=== PATIENT | male | born 1950 | race Caucasian/White ===

== ENCOUNTER → 2022-03-14 08:50 | Outpatient (BNVA) | payer OTHER, SELFPAY | PROVIDERS: Visit Provider Surgery | DX: Z12.11 Encounter for screening for malignant neoplasm of colon (principal) | CPT/HCPCS: 99203 ==

== ENCOUNTER 2022-05-04 05:36 | Day surgery (SDC) | payer OTHER, SELFPAY ==
[2022-05-02 12:27] VITALS: BMI 27.9
[2022-05-04 06:11] VITALS: BP 138/93; PULSE 67; RESP 18; TEMP 36.2; O2SAT 95
[2022-05-04] MEDS: sodium chloride 0.9% 1,000 ML 30 ML IV (06:21)
--- NOTE | 2022-05-04 06:29 | ANES.PREANE2 ---
Pre-Anesthetic Assessment Height/Weight: Height 1.83 m Weight 93.44 kg Temp Pulse Resp BP Pulse Ox O2 Del Method 97.1 F L 67 18 138/93 95 05/04/22 06:11 05/04/22 06:11 05/04/22 06:11 05/04/22 06:11 05/04/22 06:11 05/04/22 06:11 Preop Diagnosis: screening Operation Date: 05/04/22 07:00 Proposed Procedures p Colonoscopy 75348,Z12.11(Not Applicable) - Sanford Tomas DO Familial anesthetic complications: None Was Beta Conner taken within 24 hours: N/A Was Clonidine taken within 24 hours: N/A Last intake: Intake Last Liquid Date 05/03/22 Last Liquid Time 20:00 Last Solid Date 05/03/22 Last Solid Time 08:00 Social No alcohol and No tobacco Exam alert, oriented x 3, clear to auscultation bilaterally and regular rate & rhythm Airway Submandibular: within normal limits Cervical ROM: within normal limits Mallampati: Class II History/ROS No significant history except as noted Pulmonary Pt states ground glass opacities found on CT early march- not sympatomatic CV/HEM None reported None reported Hepatic None reported GI None reported Metabolic None reported Musc/skel None reported Neuropsych None reported Anesthetic Plan ASA status: 2 Anesthesia: Anesthesia Evaluation, General and MAC Risk of > 500 ml blood loss (7ml/kg in children): No Medications/Allergies Home Medications Medication Instructions Recorded Confirmed Last Taken Type ascorbic acid (vitamin C) 500 mg 500 mg PO .1 daily 03/14/22 05/04/22 04/30/22 History capsule cetirizine 10 mg tablet (Allergy 10 mg PO DAILY PRN Allergy Symptoms 03/14/22 05/04/22 04/30/22 History Relief (cetirizine)) green tea leaf extract (Green Tea) 1 cap PO .1 day 03/14/22 05/04/22 04/30/22 History multivitamin 1 tab PO ONCE 03/14/22 05/04/22 04/30/22 History niacin 500 mg tablet 500 mg PO BID 03/14/22 05/04/22 04/30/22 History omega 4-fbl-evs-fish oil 100 1 cap PO DAILY 03/14/22 05/04/22 04/30/22 History mg-160 mg-1,000 mg capsule (Fish Oil) potassium chloride 20 mEq oral 20 meq PO DAILY 03/14/22 05/04/22 04/30/22 History packet saw zohreho 160 mg capsule 160 mg PO ONCE 03/14/22 05/04/22 04/30/22 History Allergies Allergy/AdvReac Type Severity Reaction Status Date / Time Zzkysbv-NLU-CtT Reductase Allergy ALGY-Hives Verified 05/04/22 06:18 Inhibitor Current Medications Generic Name Dose Route Start Last Admin Trade Name Freq PRN Reason Stop Dose Admin Sodium Chloride 1,000 mls @ 30 mls/hr 05/04/22 06:00 05/04/22 06:21 Sodium Chloride 0.9% IV 05/05/22 05:59 30 mls/hr .Q24H CHRISTINE Administration PFSH Anesthesia Medical History Hx of colonic polyp Surgical History Hx of colonoscopy x2 hx of transverse polyp and rectal polyp Hx of exploratory thoracotomy Family History Mother Thyroid disease Father Hypertension Alzheimer disease Social History Smoking and tobacco status: never smoked Data Anesthesia Cardiac Studies: No Data to Display
--- NOTE | 2022-05-04 06:49 | PM.HP ---
Providers/Chief Complaint Primary Care Provider: Nataliya Saenz MD Chief Complaint: History of colon polyps History of Present Illness Elpidio Tuttle is a 72 year old male who comes in for a screening colonoscopy. He has a history of colon polyps Review of Systems General: Reports: 10 or more systems reviewed and unremarkable except in HPI and below Medications/Allergies Home Medications Medication Instructions Recorded Confirmed Last Taken Type ascorbic acid (vitamin C) 500 mg 500 mg PO .1 daily 03/14/22 05/04/22 04/30/22 History capsule cetirizine 10 mg tablet (Allergy 10 mg PO DAILY PRN Allergy Symptoms 03/14/22 05/04/22 04/30/22 History Relief (cetirizine)) green tea leaf extract (Green Tea) 1 cap PO .1 day 03/14/22 05/04/22 04/30/22 History multivitamin 1 tab PO ONCE 03/14/22 05/04/22 04/30/22 History niacin 500 mg tablet 500 mg PO BID 03/14/22 05/04/22 04/30/22 History omega 4-asx-nbz-fish oil 100 1 cap PO DAILY 03/14/22 05/04/22 04/30/22 History mg-160 mg-1,000 mg capsule (Fish Oil) potassium chloride 20 mEq oral 20 meq PO DAILY 03/14/22 05/04/22 04/30/22 History packet saw palmetto 160 mg capsule 160 mg PO ONCE 03/14/22 05/04/22 04/30/22 History Allergies Allergy/AdvReac Type Severity Reaction Status Date / Time Xnlqhmh-ZRT-UwW Reductase Allergy ALGY-Hives Verified 05/04/22 06:18 Inhibitor PFSH Acute PFSH: Medical History Hx of colonic polyp Surgical History Hx of colonoscopy x2 hx of transverse polyp and rectal polyp Hx of exploratory thoracotomy Family History Mother Thyroid disease Father Hypertension Alzheimer disease Social History Smoking and tobacco status: never smoked Vitals/I&O/Wt Last Vital Signs Temp 97.1 F L 05/04/22 06:11 Pulse 67 05/04/22 06:11 Resp 18 05/04/22 06:11 BP 138/93 05/04/22 06:11 Pulse Ox 95 05/04/22 06:11 O2 Del Method 05/04/22 06:11 Weight last 48 hrs Weight 206 lb Physical Exam Narrative: General : Patient is well developed , no acute distress, oriented x3 Head : Normal cephalic, a-traumatic. Ears : Pinnae and external canal are normal. Hearing is normal. Eyes : PERRLA, Sclera and injection are normal. No conjunctival discharge. Nose : Mucous membranes are without erythema. Throat : buccal mucosa is normal, gums are without significant recession or hypertrophy. Lungs : Equal chest rise bilaterally, no use of accessory muscles, trachea is midline. Cor : Rate and rhythm are normal. Abdomen : Soft, ND, NT, no g/r/m Extremities : No edema, no cyanosis or clubbing, dorsalis pedis pulses are present bilaterally, non-tender to palpation of calves. Upper extremities are normal bilaterally. Back : non-tender to palpation, no CVA tenderness. Neuro : CN II - XII intact, Upper and lower extremities have equal and full strength A&P Assessment and plan (1) Encounter for screening colonoscopy: Status: Acute Plan colonoscopy The risks and benefits of the procedure, including bleeding, infection, intestinal perforation requiring surgery, missed lesion, or explained to the patient. He is understanding of the risks and wishes to proceed. Attestations Medical Necessity Statement*: Patient will be discharged home patient will be discharged home after the procedure Coding Level of Care Code Acute Back Pad Inspector for Chg Fwd Diagnoses Encounter for screening colonoscopy Z12.11
[2022-05-04 07:25] VITALS: BP 107/72; PULSE 60; RESP 18; TEMP 36.3; O2SAT 96
[2022-05-04 07:34] VITALS: BP 133/68; PULSE 59; RESP 18; TEMP 36.4; O2SAT 97
--- NOTE | 2022-05-04 13:31 | ANE.PACU2 ---
Inpatient post-anesthesia follow up: Airway intact: Yes Vital signs: Temperature 97.6 F Pulse Rate 59 Respiratory Rate 18 Blood Pressure 133/68 Pulse Oximetry 97 Oxygen Delivery Me thod Room Air Oxygen Flow Rate Fraction of Inspir ed Oxygen Hydration adequate: Yes Nausea and vomiting: No Pain level: 1 Mental status: Baseline
== END 2022-05-04 07:51 | disposition home or self-care (01) ==
PROVIDERS: PCP Family Medicine; Visit Provider Surgery
PROC: 0DJD8ZZ Inspection of Lower Intestinal Tract, Via Natural or Artificial Opening Endoscopic (ICD-10-PCS; CPT 45378; principal; 2022-05-04 07:00)
DX: Z12.11 Encounter for screening for malignant neoplasm of colon (principal); D12.2 Benign neoplasm of ascending colon; Z86.010 Personal history of colon polyps
CPT/HCPCS: 45385; 88305; J2704; J7030

== ENCOUNTER → 2022-05-18 09:54 | Outpatient (BNVA) | payer OTHER, SELFPAY | PROVIDERS: PCP Family Medicine; Visit Provider Surgery | DX: D36.9 Benign neoplasm, unspecified site (principal) | CPT/HCPCS: 99212 ==

== ENCOUNTER 2024-11-24 18:15 | Inpatient (IN) | payer OTHER, MEDICARE, SELFPAY ==
[2024-11-24 18:40] VITALS: BP 126/85; PULSE 102; RESP 18; TEMP 36.4; O2SAT 93; BMI 27.8
[2024-11-24 19:52] LABS: Basophils % 0.1 %; Hematocrit 46.5 % (37-53); Lymphocytes # 0.4 10^3/uL (0.8-4.8); Lymphocytes % 5.3 %; Mean Corpuscular Hemoglobin 28.4 pg (27-33); Mean Corpuscular Volume 88.6 fl (82-101); Mean Platelet Volume 10.8 fL (7.4-10.4); Monocytes # 0.4 10^3/uL (0.2-0.9); Monocytes % 4.5 %; Neutrophils # 7.35 10^3/uL (1.8-7.7); Neutrophils % 89.7 %; Nucleated Red Blood Cells % 0 %; Platelet Count 143 10^3/cmm (157-399); Red Blood Count 5.25 10^6/uL (3.85-5.65); Red Cell Distribution Width 14.7 % (12.1-15.1); White Blood Count 8.19 10^3/uL (3.29-11.43)
[2024-11-24 20:11] LABS: Alanine Aminotransferase 27 U/L (0-41); Albumin Level 3.7 g/dL (3.5-5.2); Alkaline Phosphatase 130 U/L (40-130); Anion Gap 15.3 (5-19); Aspartate Amino Transferase 50 U/L (0-40); Blood Urea Nitrogen 19 mg/dL (8-23); Calcium 8.2 mg/dL (8.5-10.5); Carbon Dioxide 18 mmol/L (22-29); Chloride 109 mmol/L (98-107); Creatinine Clr Calc Pharmacy 79.1014; Globulin 3.1 g/dL (1.3-4.6); Glucose 185 mg/dL (65-115); Lipase 33 U/L (13-60); Osmolality Calculated 293 mOsm/kg (285-295); Potassium 4.3 mmol/L (3.5-5.1); Sodium 138 mmol/L (136-145); Total Bilirubin 0.4 mg/dL (0.15-1.2); Total Protein 6.8 g/dL (6.6-8.7)
--- NOTE | 2024-11-24 20:48 | CTR_ITS ---
PROCEDURE INFORMATION: Exam: CT Abdomen And Pelvis With Contrast Exam date and time: 11/24/2024 9:03 PM Age: 74 years old Clinical indication: Abdominal pain; Epigastric; Additional info: Abd pain TECHNIQUE: Imaging protocol: Computed tomography of the abdomen and pelvis with contrast. Radiation optimization: All CT scans at this facility use at least one of these dose optimization techniques: automated exposure control; mA and/or kV adjustment per patient size (includes targeted exams where dose is matched to clinical indication); or iterative reconstruction. Contrast material: OMNI 350; Contrast volume: 100 ml; Contrast route: INTRAVENOUS (IV); COMPARISON: CR XR pelvis 1-2V* [id number] 01/17/2019 2:14 PM RADIATION DOSE METRICS: Total DLP (mGy-cm): 832.93 FINDINGS: Liver: Normal. No mass. Gallbladder and biliary ducts: Normal. No calcified stones. No ductal dilation. Pancreas: Normal. No ductal dilation. Spleen: Normal. No splenomegaly. Adrenal glands: Normal. No mass. Kidneys and ureters: Normal. No hydronephrosis. Stomach and bowel: Small bowel obstruction. Retained secretions in the distal esophagus. The stomach is distended with air and fluid. Multiple dilated air and fluid-filled loops of small bowel throughout the abdomen with 10 positioned point in the distal ileum. No tethering, mass or stricture identified at the transition point (series 3, image 55). Appendix: No evidence of appendicitis. Intraperitoneal space: Unremarkable. No free air. No significant fluid collection. Vasculature: Unremarkable. No abdominal aortic aneurysm. Lymph nodes: Unremarkable. No enlarged lymph nodes. Urinary bladder: Unremarkable as visualized. Reproductive: Unremarkable as visualized. Bones/joints: Severe degenerative disc disease at L2-L3 and L5-S1. Soft tissues: Unremarkable. CT/CT abdomen pelvis w con* [id number] IMPRESSION: Small bowel obstruction. Retained secretions in the distal esophagus. The stomach is distended with air and fluid. Multiple dilated air and fluid-filled loops of small bowel throughout the abdomen with 10 positioned point in the distal ileum. No tethering, mass or stricture identified at the transition point (series 3, image 55).
--- NOTE | 2024-11-24 20:51 | ECG_ITS ---
[facility] 2024[facility]24 Pat Name: Elpidio Tuttle Department: Room: Gender: Male Grades 1 Thru 6 Home Teacher: : 1950 Requested By: Tyson Meza Order Number: [id number] Reading MD: TRAVIS VAUGHAN Measurements Intervals [place] Rate: 90 P: 40 FL: 175 QRS: 24 QRSD: 87 T: 40 QT: 342 QTc: 419 Interpretive Statements SINUS RHYTHM POSSIBLE LEFT ATRIAL ENLARGEMENT [-0.1mV P-WAVE IN V1/V2] No previous ECG available for comparison Electronically Signed On 11-25-2024 23:34:18 RECREATIONAL THERAPY AIDE by TRAVIS VAUGHAN [email or web address]
--- NOTE | 2024-11-24 20:51 | W.ED.ABDPA2 ---
HPI - Abdominal Pain General: Chief Complaint: Abdominal Pain Stated Complaint: ABD Pain\Diah\Sameer Time Seen by Provider: 11/24/24 20:14 Source: patient Mode of arrival: ambulatory Limitations: no limitations History of Present Illness: 74-year-old male who states that he has been having epigastric abdominal pain since eating last night. He states he ate a burger and since then he has been having pain he is also had 2 episodes of vomiting and belching. States pain sharp in nature rates it a 7 out of 10 denies any worse improving factors Associated Symptoms: Reports nausea and vomiting; Denies chills and fever(s) Related Data Home Medications ?Medication ?Instructions ?Recorded ?Confirmed ascorbic acid (vitamin C) 500 mg 500 mg PO .1 daily 03/14/22 05/18/22 capsule cetirizine 10 mg tablet (Allergy 10 mg PO DAILY PRN Allergy Symptoms 03/14/22 05/18/22 Relief (cetirizine)) green tea leaf extract (Green Tea 1 cap PO .1 day 03/14/22 05/18/22 capsule) multivitamin 1 tab PO ONCE 03/14/22 05/18/22 niacin 500 mg tablet 500 mg PO BID 03/14/22 05/18/22 omega 9-qws-blj-fish oil 100 1 cap PO DAILY 03/14/22 05/18/22 mg-160 mg-1,000 mg capsule (Fish Oil) Held on 05/04/22. Instructions: Resume on 05/07/22. potassium chloride 20 mEq oral 20 meq PO DAILY 03/14/22 05/18/22 packet saw palmetto 160 mg capsule 160 mg PO ONCE 03/14/22 05/18/22 Allergies Allergy/AdvReac Type Severity Reaction Status Date / Time Wphxjcs-IPF-AjJ Reductase Allergy ALGY-Hives Verified 11/24/24 18:47 Inhibitor Review of Systems Const: Denies: fever(s), chills, body aches or change in appetite ENMT: Denies: throat pain or dental pain Card: Denies: chest pain Resp: Denies: dyspnea GI: Reports: abdominal pain, nausea and vomiting Musc: Denies: neck pain or back pain Skin/Breast: Denies: rash Neuro: Denies: headache(s) PFSH ED PFSH: Medical History Tubular adenoma Hx of colonic polyp Surgical History Hx of exploratory thoracotomy Hx of colonoscopy x2 hx of transverse polyp and rectal polyp Family History Mother Thyroid disease Father Hypertension Alzheimer disease Social History Smoking and tobacco/nicotine status: never used tobacco/nicotine Physical Exam Const: COMMON NORMALS: no acute distress, patient oriented x3 and healthy appearing HENMT: COMMON NORMALS: normocephalic and atraumatic HEAD & SCALP: normocephalic and atraumatic Eye: COMMON NORMALS: conjunctivae normal CONJUNCTIVA: Yes conjunctivae normal Neck/C-Spine: COMMON NORMALS: full ROM and supple Chest: COMMONS NORMALS: normal inspection of the chest Resp: COMMON NORMALS: normal respiratory effort, No retractions, No use of accessory muscles and clear to auscultation bilaterally AUSCULTATION: clear to auscultation bilaterally Cardio: COMMON NORMALS: regular rate, regular rhythm and No murmurs present (Cardio) RATE: regular rate RHYTHM: regular rhythm GI: COMMON NORMALS: Normal to inspection, nondistended, normoactive bowel sounds present, Soft to palpation and no masses PALPATION: Yes Soft to palpation OTHER: epigastric tenderness Extremity: COMMON NORMALS: normal to inspection and full ROM Neuro: COMMON NORMALS: patient oriented x3, moves all extremities and no focal motor deficits Psych: COMMON NORMALS: mental status grossly normal, Normal thought process present and cooperative THOUGHT PROCESS: Normal thought process present Skin: COMMON NORMALS: no rashes or lesions noted and no wounds GENERAL SKIN EXAM: no rashes or lesions noted Course Vital Signs: Vital signs: Vital Signs Temperature 97.5 F L 11/24/24 18:40 Pulse Rate 102 H 11/24/24 18:40 Respiratory Rate 18 11/24/24 18:40 Blood Pressure 126/85 11/24/24 18:40 Pulse Oximetry 93 11/24/24 18:40 Oxygen Delivery Me thod Room Air 11/24/24 18:40 MDM - Abdominal Pain Medical Decision Making Patient presents here with abdominal pain vomiting CT did show small bowel obstruction will place an NG tube did spoke to hospitalist will admit at this time. Medical Records I reviewed the patient's medical records. Lab Data I reviewed the patient's lab results. 11/24/24 19:44 11/24/24 19:44 Labs/Radiology: Radiology Impressions Abdomen/Pelvis CT 11/24/24 20:48 IMPRESSION: Small bowel obstruction. Retained secretions in the distal esophagus. The stomach is distended with air and fluid. Multiple dilated air and fluid-filled loops of small bowel throughout the abdomen with 10 positioned point in the distal ileum. No tethering, mass or stricture identified at the transition point (series 3, image 55). ADDENDUM: 11/24/242137 THIS REPORT CONTAINS FINDINGS THAT MAY BE CRITICAL TO PATIENT CARE. The findings were verbally communicated via telephone conference with SHAAN Best at 9:38 PM WAGE AND SALARY SPECIALIST on 11/24/2024. The findings were acknowledged and understood. Laboratory Results WBC 8.19 10^3/uL (3.29-11.43) 11/24/24 19:44 RBC 5.25 10^6/uL (3.85-5.65) 11/24/24 19:44 Hgb 14.90 g/dL (11.27-16.99) 11/24/24 19:44 Hct 46.5 % (37-53) 11/24/24 19:44 MCV 88.6 fl (82-101) 11/24/24 19:44 MCH 28.4 pg (27-33) 11/24/24 19:44 MCHC 32.0 g/dL (30-55) 11/24/24 19:44 RDW 14.7 % (12.1-15.1) 11/24/24 19:44 Plt Count 143 10^3/cmm (157-399) L 11/24/24 19:44 MPV 10.8 fL (7.4-10.4) H 11/24/24 19:44 Neut % (Auto) 89.7 % 11/24/24 19:44 Lymph % (Auto) 5.3 % 11/24/24 19:44 [place] % (Auto) 4.5 % 11/24/24 19:44 Eos % (Auto) 0.0 % 11/24/24 19:44 Baso % (Auto) 0.1 % 11/24/24 19:44 Neut # (Auto) 7.35 10^3/uL (1.8-7.7) 11/24/24 19:44 Lymph # (Auto) 0.4 10^3/uL (0.8-4.8) L 11/24/24 19:44 [place] # (Auto) 0.4 10^3/uL (0.2-0.9) 11/24/24 19:44 Eos # (Auto) 0.0 10^3/uL (0.0-0.8) 11/24/24 19:44 Baso # (Auto) 0.0 10^3/uL (0.0-0.1) 11/24/24 19:44 Nucleated RBC % (auto) 0 % 11/24/24 19:44 Nucleated RBCs # 0.0 /100WBC 11/24/24 19:44 Sodium 138 mmol/L (136-145) 11/24/24 19:44 Potassium 4.3 mmol/L (3.5-5.1) 11/24/24 19:44 Chloride 109 mmol/L (98-107) H 11/24/24 19:44 Carbon Dioxide 18 mmol/L (22-29) L 11/24/24 19:44 Anion Gap 15.3 (5-19) 11/24/24 19:44 BUN 19 mg/dL (8-23) 11/24/24 19:44 Creatinine 1.0 mg/dL (0.7-1.2) 11/24/24 19:44 GFR Calculation Not Reportable 11/24/24 19:44 Glucose 185 mg/dL (65-115) H 11/24/24 19:44 Calculated Osmolality 293 mOsm/kg (285-295) 11/24/24 19:44 Calcium 8.2 mg/dL (8.5-10.5) L 11/24/24 19:44 Total Bilirubin 0.4 mg/dL (0.15-1.2) 11/24/24 19:44 AST 50 U/L (0-40) H 11/24/24 19:44 ALT 27 U/L (0-41) 11/24/24 19:44 Alkaline Phosphatase 130 U/L (40-130) 11/24/24 19:44 Total Protein 6.8 g/dL (6.6-8.7) 11/24/24 19:44 Albumin 3.7 g/dL (3.5-5.2) 11/24/24 19:44 Globulin 3.1 g/dL (1.3-4.6) 11/24/24 19:44 Lipase 33 U/L (13-60) 11/24/24 19:44 All radiology interpretation(s) finalized by discharge Discharge Plan Discharge Patient Disposition: Admitted As Inpatient Clinical Impression: Small bowel obstruction Condition: Stable Prescriptions: No Action niacin 500 mg tablet 500 mg PO BID ascorbic acid (vitamin C) 500 mg capsule 500 mg PO .1 daily multivitamin Tablet 1 tab PO ONCE Green Tea Capsule 1 cap PO .1 day Fish Oil 100-160-1,000 mg capsule 1 cap PO DAILY potassium chloride 20 mEq packet 20 meq PO DAILY saw palmetto 160 mg capsule 160 mg PO ONCE Rx Instructions: give with meal/snack cetirizine [Allergy Relief (cetirizine)] 10 mg tablet 10 mg PO DAILY PRN (Reason: Allergy Symptoms) Referrals: Nataliya Saenz MD [Primary Care Provider] - Patient Instructions: Opioid Safety, Pain Management Print Language: Irish Coding Level of Care Code ED Drywall Boardhanger for Joe Mike
[2024-11-24] MEDS: ondansetron 2 mg/ML SDV 2 mL 4 MG IVP ×2 (20:58→22:27)
[2024-11-24] MEDS: HYDROMORPHONE HCL 0.5 MG/0.5 ML INJ IVP (20:59)
[2024-11-24] MEDS: iohexol 350 mg/mL 500 mL Btl (per mL) IV (21:06)
[2024-11-24 21:37] VITALS: BP 154/88; PULSE 83; O2SAT 95
--- NOTE | 2024-11-24 21:40 | PM.HP ---
Providers/Chief Complaint Primary Care Provider: Nataliya Saenz MD Chief Complaint: ABD Pain\Diah\Sameer History of Present Illness Elpidio Tuttle is a 74 year old male without significant past medical surgical history presented with chief complaint of recurrent nausea vomiting abdominal discomfort. Patient is drowsy, has an NG tube with 700 mL of dark-colored gastric content, patient is saturating 89 to 90% on room air, hemodynamically stable, verbally redirectable, is at the bedside who is providing most of the information, is stating that yesterday Elpidio had a buffalo burger with mashed potatoes and after that he started feeling very full, he has been vomiting since last 24 hours, they have not noticed any fever, his last bowel movement was today in the waiting room, workup in the ER revealed normal CBC and BMP, CT abdomen pelvis consistent with bowel obstruction, general surgery consulted, NG tube in place at the time of evaluation Patient is stating that he had colonoscopy few years ago, couple of polyps were removed he was never told about any cancerous lesion he does have a brother with GI cancer Patient does not have any history of coronary disease or RI. I have asked nursing staff to put him on 3 L nasal cannula because of hypoxia with the NG tube is stating that Elpidio has never been diagnosed with any sleep apnea, Review of Systems Eyes: Denies: change in vision ENMT: Denies: throat pain Card: Denies: chest pain Resp: Denies: dyspnea GI: Reports: abdominal pain and nausea : Denies: flank pain Medications/Allergies Home Medications ?Medication ?Instructions ?Recorded ?Confirmed ?Last Taken ?Type ascorbic acid (vitamin C) 500 mg 500 mg PO .1 daily 03/14/22 05/18/22 04/30/22 History capsule cetirizine 10 mg tablet (Allergy 10 mg PO DAILY PRN Allergy Symptoms 03/14/22 05/18/22 04/30/22 History Relief (cetirizine)) green tea leaf extract (Green Tea 1 cap PO .1 day 03/14/22 05/18/22 04/30/22 History capsule) multivitamin 1 tab PO ONCE 03/14/22 05/18/22 04/30/22 History niacin 500 mg tablet 500 mg PO BID 03/14/22 05/18/22 04/30/22 History omega 8-gkx-wwp-fish oil 100 1 cap PO DAILY 03/14/22 05/18/22 04/30/22 History mg-160 mg-1,000 mg capsule (Fish Oil) Held on 05/04/22. Instructions: Resume on 05/07/22. potassium chloride 20 mEq oral 20 meq PO DAILY 03/14/22 05/18/22 04/30/22 History packet saw palmetto 160 mg capsule 160 mg PO ONCE 03/14/22 05/18/22 04/30/22 History Allergies Allergy/AdvReac Type Severity Reaction Status Date / Time Vgiyyjz-CPE-QtK Reductase Allergy ALGY-Hives Verified 11/24/24 18:47 Inhibitor PFSH Acute PFSH: Medical History Tubular adenoma Hx of colonic polyp Surgical History Hx of exploratory thoracotomy Hx of colonoscopy x2 hx of transverse polyp and rectal polyp Family History Mother Thyroid disease Father Hypertension Alzheimer disease Social History Smoking and tobacco/nicotine status: never used tobacco/nicotine Vitals/I&O/Wt Last Vital Signs Temp 97.5 F L 11/24/24 18:40 Pulse 102 H 11/24/24 18:40 Resp 18 11/24/24 18:40 BP 126/85 11/24/24 18:40 Pulse Ox 93 11/24/24 18:40 O2 Del Method Room Air 11/24/24 18:40 Weight last 48 hrs Weight 92.986 kg Physical Exam Narrative: Patient is drowsy however redirectable No sign of stroke Hypoxic on room air Currently saturating well Abdomen benign Absent bowel sounds GCS 15 No active focal deficit Pupils symmetrical Patient is getting IV fluids Data 11/24/24 19:44 11/24/24 19:44 A&P Assessment and plan (1) Small bowel obstruction: (2) Tubular adenoma: Plan Small bowel obstruction 2021 ascending colon polypectomy was done which showed tubular adenoma no high-grade dysplasia noted Patient has a brother with GI cancer Patient is not endorsing any significant surgical history, thoraco abdominal area scar consistent with a cyst removal as per the family NG tube in place Hemodynamically stable Start D5 normal saline Opioids on as-needed basis Serial abdominal exams General Surgery consulted If patient symptoms do not resolve in the next 24 to 48 hours he will need PPN versus TPN for nutrition Acute hypoxia: Undiagnosed sleep apnea? Will start 3 L nasal cannula treatment in the ER Chest x-ray not showing any consolidation or aspiration signs Hold p.o. meds N.p.o. Full code DVT prophylaxis Lovenox GI prophylaxis: Protonix PDMP PDMP Reviewed: Not Reviewed Attestations Medical Necessity Statement*: More than 2 midnights anticipated Diagnoses Small bowel obstruction K56.609 Tubular adenoma D36.9
--- NOTE | 2024-11-24 22:10 | PM.CONSULT ---
Providers/Reason For Consult Consulting Physician/Specialty*: Dr. Bowers general surgery Reason for Consult*: SBO Attending Physician: Jose Miguel Love MD Primary Care Provider: Nataliya Saenz MD History of Present Illness History of Present Illness Elpidio Tuttle is a 74 year old male who presents with nausea and vomiting. Patient also reports diarrhea starting yesterday. Patient currently passing gas and had a couple small bowel movements earlier this morning. CT scan was done as part of his ER workup which revealed dilated loops of small bowel as well as a possible transition point in right lower quadrant. Patient had a remote surgery in which they had removed a cyst in the thoracoabdominal area. Patient can provide much detail. Family at bedside cannot provide additional details either. Abdomen is distended but benign. CT scan does not show any evidence of compromised small bowel. Medications/Allergies Home Medications ?Medication ?Instructions ?Recorded ?Confirmed ?Last Taken ?Type ascorbic acid (vitamin C) 500 mg 500 mg PO .1 daily 03/14/22 05/18/22 04/30/22 History capsule cetirizine 10 mg tablet (Allergy 10 mg PO DAILY PRN Allergy Symptoms 03/14/22 05/18/22 04/30/22 History Relief (cetirizine)) green tea leaf extract (Green Tea 1 cap PO .1 day 03/14/22 05/18/22 04/30/22 History capsule) multivitamin 1 tab PO ONCE 03/14/22 05/18/22 04/30/22 History niacin 500 mg tablet 500 mg PO BID 03/14/22 05/18/22 04/30/22 History omega 6-rll-wga-fish oil 100 1 cap PO DAILY 03/14/22 05/18/22 04/30/22 History mg-160 mg-1,000 mg capsule (Fish Oil) Held on 05/04/22. Instructions: Resume on 05/07/22. potassium chloride 20 mEq oral 20 meq PO DAILY 03/14/22 05/18/22 04/30/22 History packet saw palmetto 160 mg capsule 160 mg PO ONCE 03/14/22 05/18/22 04/30/22 History Allergies Allergy/AdvReac Type Severity Reaction Status Date / Time [id number] Reductase Allergy ALGY-Hives Verified 11/24/24 18:47 Inhibitor PFSH Acute PFSH: Medical History Tubular adenoma Hx of colonic polyp Surgical History Hx of exploratory thoracotomy Hx of colonoscopy x2 hx of transverse polyp and rectal polyp Family History Mother Thyroid disease Father Hypertension Alzheimer disease Social History Smoking and tobacco/nicotine status: never used tobacco/nicotine Vitals/I&O/Wt Last Vital Signs Temp 97.5 F L 11/24/24 18:40 Pulse 102 H 11/24/24 18:40 Resp 18 11/24/24 18:40 BP 126/85 11/24/24 18:40 Pulse Ox 93 11/24/24 18:40 O2 Del Method Room Air 11/24/24 18:40 Weight last 48 hrs Weight 205 lb Physical Exam Narrative: Chest: Unlabored breathing room air. No lymphadenopathy. Heart: Regular rate and rhythm. Abdomen: Soft, diffusely tender, distended. No masses or lymphadenopathy. Several surgical scars in the right thoracoabdominal area. Data 11/24/24 19:44 11/24/24 19:44 A&P Assessment and plan (1) Small bowel obstruction: 74-year-old male who presents with possible SBO. Patient unsure if he had abdominal surgery but he does have scars over the right thoracoabdominal area. Agree with NG tube placement to low continuous suction, nothing by mouth, IV fluid resuscitation. Electrolyte derangement correction. Will follow closely. PDMP PDMP Reviewed: Not Reviewed Coding Level of Care Code 41060 Diagnoses Small bowel obstruction K56.609 Time Spent (min) 30
--- NOTE | 2024-11-24 22:12 | XRR_ITS ---
PROCEDURE INFORMATION: Exam: XR Chest Exam date and time: 11/24/2024 10:36 PM Age: 74 years old Clinical indication: Device placement; Ng tube; Additional info: Post ng tube placement TECHNIQUE: Imaging protocol: Radiologic exam of the chest. Views: 1 view. COMPARISON: CR XR chest 1V [id number] 01/17/2019 2:09 PM FINDINGS: Tubes, catheters and devices: The NG tube tracks into the stomach. Lungs: Unremarkable. No consolidation. Pleural spaces: Unremarkable. No pleural effusion. No pneumothorax. Heart/Mediastinum: Unremarkable. No cardiomegaly. Bones/joints: Unremarkable. XR/XR chest 1V portable [id number] IMPRESSION: The NG tube tracks into the stomach.
[2024-11-24] MEDS: LORazepam 2 mg/mL INJ 1 mL 0.5 MG IVP (22:18)
[2024-11-24] MEDS: cetacaine Spray 5 gm Can 1 SPRAY TOPICAL (22:19)
[2024-11-24] MEDS: HYDROMORPHONE HCL 0.5 MG/0.5 ML INJ 1 MG IVP (22:27)
[2024-11-24] MEDS: dextrose 5%-sod chloride 0.9% 1,000 ML 75 ML IV (22:59)
[2024-11-24] MEDS: enoxaparin 40 mg/0.4 mL Syringe SUBCUT (23:03)
[2024-11-24 23:30] VITALS: BP 112/76; PULSE 90; O2SAT 92
[2024-11-25] VITALS (12 sets, daily range): BP systolic 113–143; BP diastolic 67–98; PULSE 82–118; RESP 17–19; TEMP 36.4–36.9; O2SAT 90–95; BMI 27.8
[2024-11-25 03:10] LABS: Basophils % 0.2 %; Eosinophils % 0.2 %; Hematocrit 48.2 % (37-53); Lymphocytes # 0.3 10^3/uL (0.8-4.8); Lymphocytes % 5.3 %; Mean Corpuscular HGB Conc 31.5 g/dL (30-55); Mean Corpuscular Hemoglobin 28.1 pg (27-33); Mean Corpuscular Volume 89.1 fl (82-101); Mean Platelet Volume 10.8 fL (7.4-10.4); Monocytes # 0.2 10^3/uL (0.2-0.9); Monocytes % 3.3 %; Neutrophils # 5.51 10^3/uL (1.8-7.7); Neutrophils % 90.8 %; Nucleated Red Blood Cells % 0 %; Platelet Count 115 10^3/cmm (157-399); Red Blood Count 5.41 10^6/uL (3.85-5.65); Red Cell Distribution Width 14.7 % (12.1-15.1); White Blood Count 6.06 10^3/uL (3.29-11.43)
[2024-11-25 03:30] LABS: Anion Gap 15.6 (5-19); Blood Urea Nitrogen 21 mg/dL (8-23); Calcium 7.9 mg/dL (8.5-10.5); Carbon Dioxide 18 mmol/L (22-29); Chloride 109 mmol/L (98-107); Creatinine Clr Calc Pharmacy 71.9103; Glucose 196 mg/dL (65-115); Magnesium 1.9 mg/dL (1.7-2.3); Osmolality Calculated 294 mOsm/kg (285-295); Potassium 4.6 mmol/L (3.5-5.1); Sodium 138 mmol/L (136-145)
--- NOTE | 2024-11-25 08:00 | XRR_ITS ---
PROCEDURE INFORMATION: Exam: XR Abdomen Exam date and time: 11/25/2024 8:40 AM Age: 74 years old Clinical indication: Condition or disease; Intestinal condition; Obstruction; Additional info: Sbo TECHNIQUE: Imaging protocol: Radiologic exam of the abdomen. Views: Frontal supine view of the abdomen. 1 View. COMPARISON: CT abdomen pelvis w con* [id number] 11/24/2024 9:03 PM FINDINGS: Tubes, catheters and devices: Gastric tube terminates in the stomach. Gastrointestinal tract: Gas within prominent loops of small bowel and in nondistended colon. A mild degree of obstruction may still persist. Organs: Contrast residue within the urinary system. Bones/joints: Unremarkable. XR/XR KUB portable [id number] IMPRESSION: Mild small bowel prominence.
[2024-11-25] MEDS: pantoprazole 40 mg SDV IVP ×2 (08:34→17:09)
[2024-11-25 08:36] LABS: Bilirubin Urine Negative (Negative); Blood Urine Negative (Negative); Glucose Urine UA Trace (Normal); Ketones Urine Trace (Negative); Leukocyte Esterase Urine Negative (Negative); Nitrate Urine Negative (Negative); Protein Urine 2+ (Negative); Urine Appearance Clear (CLEAR); Urine Color Yellow (Yellow)
[2024-11-25 09:02] LABS: Add Urine Microscopic? YES; Bacteria Urine TRACE /hpf; RBC Urine RARE /hpf (0-2); Specific Gravity, Urine >= 1.099 (1.005-1.030); UA Manual Slide Review YES; UA Slide Review UA Slide Review Perf; WBC Urine RARE /hpf (0-5)
--- NOTE | 2024-11-25 09:52 | P.PN_ITS ---
Subjective 2 Subjective: Passing gas Having BMs. + Hematochezia Gastrograffin challenge - contrast reach colon Benign abdomen Vitals/I&O/Wt Last Vital Signs Temp 98.4 F 11/25/24 08:43 Pulse 105 H 11/25/24 08:43 Resp 17 11/25/24 08:43 BP 119/80 11/25/24 08:43 Pulse Ox 93 11/25/24 08:43 O2 Del Method Room Air 11/25/24 08:43 O2 Flow Rate 5 11/25/24 02:00 11/24/24 11/25/24 11/25/24 22:59 06:59 14:59 Output Total 900 / 900 500 / 1400 350 / 350 Balance -900 / -900 -500 / -1400 -350 / -350 Weight last 48 hrs Weight 205 lb Weight 205 lb Weight 205 lb Physical Exam 2 Narrative: RRR Unlabored breathing RA Abdomen soft, mildly TTP, distended. Benign Data 11/25/24 19:48 11/25/24 14:19 A&P Assessment and plan (1) Small bowel obstruction: Plan 74 yo male who presented with a partial SBO. Contrast reached colon on gastrograffin challenge. Having bowel function. Can trial clears starting 226 AM. Can pursue colonoscopy as outpatient. PDMP PDMP Reviewed: Not Reviewed Attestations 2 Medical Necessity Statement*: NA Coding Level of Care Code 13827 Diagnoses Small bowel obstruction K56.609 Time Spent (min) 30
--- NOTE | 2024-11-25 10:21 | PC.CHAP ---
Pastoral Care Encounter/Spiritual Assessment Type of Contact [] Declined commercial subcontractor visit [] Patient/Family/Request visit [] Outpatient visit [] Follow-up visit [] Physician referral [] Code/Alert [x] Routine visit [] Staff referral [] Actively dying [] Patient sleeping [] Family support [] [] Out of room [] Palliative care [] [] Receiving care in room [] Pre-surgical visit [] Trauma [] Long length of stay [] ICU visit [] Other: Relational/Emotional Strength [x] Patient feels connected with others/family/visitors/staff [] Distress [] Loneliness/isolation [] Abandonment Spirituality of Patient [x] Person of [place] [x] Attends Bahai of their [place] [x] Believes in Prayer [] Reads Bible or Episcopalian materials [] There are Spiritual issues to be addressed Commercial Or Institutional Cleaner Interventions [x] Prayer [] Active listening [x] Non-anxious presence [x] Spiritual/emotional support [] Crisis/trauma care [] Spiritual counseling [] Bereavement support [] Provided bereavement packet [] Provided Bible/devotional materials [] Provided toy/stuffed animal, coloring book to patient or family member [] Provided Communion [] Anointing/Dix [] Salvation [x] Completed spiritual assessment [] Other: Impact on Illness or Injury [] Angry [] Fearful [] Anxious [] Often cries [] Exhaustion [] Unable to work [] Unable to attend anabaptist [] Unable to walk/stand [] Unable to read [] Unable to drive [] Unable to eat/drink [] Unable to sleep [] Unable to be with family [] Patient intubated [] Other: Summary Time spent with patient 5 min
[2024-11-25] MEDS: dextrose 5%-sod chloride 0.9% 1,000 ML 75 ML IV (12:50)
--- NOTE | 2024-11-25 14:01 | P.PN_ITS ---
Subjective 2 Subjective: This morning. Patient is having significant output from NG tube. 1400 cc since overnight. Continues to have loose slightly bloody bowel movements. CT abdomen pelvis reviewed from overnight. Surgeon also present at bedside and plan was discussed with the patient regarding Gastrografin contrast study with repeat KUB to be done at 8 PM tonight. Patient agreeable. Patient denies any surgical history other than a thoracotomy for a cyst removal from her chest a long time ago?? Unsure of further details. Denies having any abdominal surgery. Vitals/I&O/Wt Last Vital Signs Temp 97.8 F 11/25/24 11:35 Pulse 100 11/25/24 11:35 Resp 17 11/25/24 11:35 BP 129/80 11/25/24 11:35 Pulse Ox 93 11/25/24 11:35 O2 Del Method Room Air 11/25/24 11:35 O2 Flow Rate 5 11/25/24 02:00 11/24/24 11/25/24 11/25/24 22:59 06:59 14:59 Intake Total 1000 / 1000 Output Total 900 / 900 500 / 1400 350 / 350 Balance -900 / -900 -500 / -1400 650 / 650 Weight last 48 hrs Weight 92.986 kg Weight 92.986 kg Weight 92.986 kg Physical Exam 2 Narrative: General: Alert oriented x3, patient seen sitting up in bed with friend at bedside. HEENT: Normocephalic, atraumatic, EOMI, on room air no conversational dyspnea no acute distress. Cardio: Regular rate rhythm, normal S1-S2, Respiratory: Clear to auscultation bilaterally no wheezes or rhonchi. GI: Abdomen mainly soft and generally nontender, mildly distended. NG tube in place draining dark greenish liquid. Patient states his abdomen was quite firm on presentation yesterday however now is softer. He is passing gas Behavior: Appropriate and cooperative Extremities: No edema bilateral lower extremities. Data 11/25/24 02:50 11/25/24 02:50 A&P Assessment and plan (1) Small bowel obstruction: (2) Tubular adenoma: Plan Small bowel obstruction 2021 ascending colon polypectomy was done which showed tubular adenoma no high- grade dysplasia noted Patient has a brother with GI cancer Patient is not endorsing any significant surgical history, thoraco abdominal area scar consistent with a cyst removal as per the family NG tube in place Hemodynamically stable Start D5 normal saline Opioids on as-needed basis Serial abdominal exams General Surgery consulted If patient symptoms do not resolve in the next 24 to 48 hours he will need PPN versus TPN for nutrition Acute hypoxia: Undiagnosed sleep apnea? Will start 3 L nasal cannula treatment in the ER Chest x-ray not showing any consolidation or aspiration signs Hold p.o. meds N.p.o. Full code DVT prophylaxis Lovenox GI prophylaxis: Protonix 11/25/2024 Patient is now back to room air. Was hypoxic at time of admission requiring 2 L nasal cannula however is now on room air. Possibly undiagnosed sleep apnea. Will need sleep study as an outpatient at discharge. General surgery consulted. Appreciate recommendations. Plan for Gastrografin contrast study today. Repeat KUB at 8 PM. Patient continues to have hematochezia and loose stools. Will need a colonoscopy going forward. Hemoglobin on admission 15.2. Will repeat labs. Recheck CBC CMP. Continue D5 normal saline at 75 cc/h. Patient appears dehydrated. PDMP PDMP Reviewed: Not Reviewed Attestations 2 Medical Necessity Statement*: More than 2 midnights anticipated Small bowel obstruction hematochezia. Diagnoses Small bowel obstruction K56.609 Tubular adenoma D36.9
[2024-11-25 14:29] LABS: Basophils % 0.2 %; Hematocrit 44.2 % (37-53); Lymphocytes # 0.7 10^3/uL (0.8-4.8); Lymphocytes % 13.1 %; Mean Corpuscular HGB Conc 32.6 g/dL (30-55); Mean Corpuscular Hemoglobin 28.5 pg (27-33); Mean Corpuscular Volume 87.5 fl (82-101); Mean Platelet Volume 10.8 fL (7.4-10.4); Monocytes # 0.6 10^3/uL (0.2-0.9); Monocytes % 10.1 %; Neutrophils # 4.31 10^3/uL (1.8-7.7); Neutrophils % 76.6 %; Nucleated Red Blood Cells % 0 %; Platelet Count 121 10^3/cmm (157-399); Red Blood Count 5.05 10^6/uL (3.85-5.65); Red Cell Distribution Width 14.9 % (12.1-15.1); White Blood Count 5.63 10^3/uL (3.29-11.43)
[2024-11-25 14:49] LABS: Alanine Aminotransferase 25 U/L (0-41); Alkaline Phosphatase 93 U/L (40-130); Anion Gap 16.3 (5-19); Aspartate Amino Transferase 55 U/L (0-40); Blood Urea Nitrogen 25 mg/dL (8-23); Calcium 7.7 mg/dL (8.5-10.5); Carbon Dioxide 21 mmol/L (22-29); Chloride 108 mmol/L (98-107); Creatinine Clr Calc Pharmacy 71.9103; Globulin 2.9 g/dL (1.3-4.6); Glucose 159 mg/dL (65-115); Osmolality Calculated 300 mOsm/kg (285-295); Potassium 4.3 mmol/L (3.5-5.1); Sodium 141 mmol/L (136-145); Total Bilirubin 0.3 mg/dL (0.15-1.2); Total Protein 5.9 g/dL (6.6-8.7)
--- NOTE | 2024-11-25 20:00 | XRR_ITS ---
PROCEDURE INFORMATION: Exam: XR Abdomen Exam date and time: 11/25/2024 8:02 PM Age: 74 years old Clinical indication: Screening exam; Other: Sbo 8 hr post gastrografin; Additional info: Sbo gastrograffin challenge, gastro charged. Cc TECHNIQUE: Imaging protocol: Radiologic exam of the abdomen. Views: Frontal supine view of the abdomen. 1 View. COMPARISON: CR XR KUB portable [id number] 11/25/2024 8:40 AM FINDINGS: Gastrointestinal tract: Gastrografin is seen within the ascending, transverse and descending colon and rectum at 8 hours Multiple air-filled dilated loops of small bowel. Bones/joints: Unremarkable. XR/XR KUB portable [id number] IMPRESSION: 1. Gastrografin is seen within the ascending, transverse and descending colon and rectum at 8 hours 2. Multiple air-filled dilated loops of small bowel.
[2024-11-25 20:09] LABS: Basophils % 0.2 %; Hematocrit 42.3 % (37-53); Lymphocytes # 0.8 10^3/uL (0.8-4.8); Lymphocytes % 12.8 %; Mean Corpuscular HGB Conc 32.4 g/dL (30-55); Mean Corpuscular Hemoglobin 28.2 pg (27-33); Mean Platelet Volume 11.3 fL (7.4-10.4); Monocytes # 0.7 10^3/uL (0.2-0.9); Monocytes % 11.6 %; Neutrophils # 4.82 10^3/uL (1.8-7.7); Neutrophils % 75.2 %; Nucleated Red Blood Cells % 0 %; Platelet Count 119 10^3/cmm (157-399); Red Blood Count 4.86 10^6/uL (3.85-5.65); Red Cell Distribution Width 14.9 % (12.1-15.1)
[2024-11-25] MEDS: enoxaparin 40 mg/0.4 mL Syringe SUBCUT (21:11)
[2024-11-26] VITALS (7 sets, daily range): BP systolic 113–162; BP diastolic 70–83; PULSE 64–80; RESP 16–20; TEMP 36.6–36.9; O2SAT 93–95; BMI 27.8
[2024-11-26] MEDS: dextrose 5%-sod chloride 0.9% 1,000 ML 75 ML IV (01:11)
[2024-11-26 07:57] LABS: Hematocrit 38.6 % (37-53); Lymphocytes # 1.2 10^3/uL (0.8-4.8); Lymphocytes % 17.5 %; Mean Corpuscular HGB Conc 32.1 g/dL (30-55); Mean Corpuscular Hemoglobin 28.4 pg (27-33); Mean Corpuscular Volume 88.3 fl (82-101); Mean Platelet Volume 11.3 fL (7.4-10.4); Monocytes # 0.8 10^3/uL (0.2-0.9); Monocytes % 11.9 %; Neutrophils # 4.64 10^3/uL (1.8-7.7); Neutrophils % 70.4 %; Nucleated Red Blood Cells % 0 %; Platelet Count 114 10^3/cmm (157-399); Red Blood Count 4.37 10^6/uL (3.85-5.65); Red Cell Distribution Width 14.9 % (12.1-15.1); White Blood Count 6.58 10^3/uL (3.29-11.43)
--- NOTE | 2024-11-26 08:06 | P.PN_ITS ---
Subjective 2 Subjective: Contrast media to the colon Minimal G-tube output Less distended Passing gas and having bowel function Still having bloody bowel movement Vitals/I&O/Wt Last Vital Signs Temp 97.9 F 11/26/24 04:00 Pulse 80 11/26/24 04:00 Resp 20 H 11/26/24 04:00 BP 152/82 11/26/24 04:00 Pulse Ox 95 11/26/24 04:00 O2 Del Method Room Air 11/26/24 04:00 O2 Flow Rate 5 11/25/24 02:00 11/25/24 11/26/24 11/26/24 22:59 06:59 14:59 Intake Total 926.25 / 1926.25 Balance 926.25 / 1576.25 Weight last 48 hrs Weight 205 lb Weight 205 lb Weight 205 lb Weight 205 lb Physical Exam 2 Narrative: Chest: Unlabored breathing room air. No lymphadenopathy. Heart: Regular rate and rhythm. Abdomen: Soft, nontender, mildly distended. No masses or lymphadenopathy. Data 11/26/24 07:37 11/26/24 07:37 A&P Assessment and plan (1) Small bowel obstruction: Plan 74-year-old male who presented with an SBO. Contrast mated to the colon. Okay to pull NG tube. Start clear liquids and advance as tolerated. Once tolerating a regular diet patient can be discharged we can plan to do a colonoscopy as outpatient so that he can be prepped appropriately. Will continue to follow while in hospital. PDMP PDMP Reviewed: Not Reviewed Attestations 2 Medical Necessity Statement*: N/A Coding Level of Care Code 57388 Diagnoses Small bowel obstruction K56.609 Time Spent (min) 30
[2024-11-26 08:10] LABS: Alanine Aminotransferase 25 U/L (0-41); Albumin Level 2.7 g/dL (3.5-5.2); Alkaline Phosphatase 84 U/L (40-130); Anion Gap 13.7 (5-19); Aspartate Amino Transferase 58 U/L (0-40); Blood Urea Nitrogen 22 mg/dL (8-23); Calcium 7.5 mg/dL (8.5-10.5); Carbon Dioxide 20 mmol/L (22-29); Chloride 113 mmol/L (98-107); Creatinine Clr Calc Pharmacy 98.8767; Globulin 2.9 g/dL (1.3-4.6); Glucose 141 mg/dL (65-115); Osmolality Calculated 302 mOsm/kg (285-295); Potassium 3.7 mmol/L (3.5-5.1); Sodium 143 mmol/L (136-145); Total Bilirubin 0.3 mg/dL (0.15-1.2); Total Protein 5.6 g/dL (6.6-8.7)
[2024-11-26] MEDS: pantoprazole 40 mg SDV IVP ×2 (09:50→17:00)
--- NOTE | 2024-11-26 13:15 | P.PN_ITS ---
Subjective 2 Subjective: Seen today. He would like to have NG tube removed. He is no longer having hematochezia. States bowel movement has cleared up. No longer seeing any blood. Has been tolerating ice chips since yesterday. Discussed with him regarding advancing to clear liquid diet today to which she is agreeable. Vitals/I&O/Wt Last Vital Signs Temp 98.1 F 11/26/24 11:58 Pulse 78 11/26/24 11:58 Resp 17 11/26/24 11:58 BP 162/76 11/26/24 11:58 Pulse Ox 95 11/26/24 11:58 O2 Del Method Room Air 11/26/24 11:58 O2 Flow Rate 5 11/25/24 02:00 11/25/24 11/26/24 11/26/24 22:59 06:59 14:59 Intake Total 926.25 / 1926.25 Balance 926.25 / 1576.25 Weight last 48 hrs Weight 92.986 kg Weight 92.986 kg Weight 92.986 kg Weight 92.986 kg Physical Exam 2 Narrative: General: Alert oriented x3, patient seen sitting up in bed with friend at bedside. HEENT: Normocephalic, atraumatic, EOMI, on room air no conversational dyspnea no acute distress. Cardio: Regular rate rhythm, normal S1-S2, Respiratory: Clear to auscultation bilaterally no wheezes or rhonchi. GI: Abdomen mainly soft and generally nontender, mildly distended. Behavior: Appropriate and cooperative Extremities: No edema bilateral lower extremities. Data 11/26/24 07:37 11/26/24 07:37 A&P Assessment and plan (1) Small bowel obstruction: (2) Tubular adenoma: Plan Small bowel obstruction 2021 ascending colon polypectomy was done which showed tubular adenoma no high- grade dysplasia noted Patient has a brother with GI cancer Patient is not endorsing any significant surgical history, thoraco abdominal area scar consistent with a cyst removal as per the family NG tube in place Hemodynamically stable Start D5 normal saline Opioids on as-needed basis Serial abdominal exams General Surgery consulted If patient symptoms do not resolve in the next 24 to 48 hours he will need PPN versus TPN for nutrition Acute hypoxia: Undiagnosed sleep apnea? Will start 3 L nasal cannula treatment in the ER Chest x-ray not showing any consolidation or aspiration signs Hold p.o. meds N.p.o. Full code DVT prophylaxis Lovenox GI prophylaxis: Protonix 11/25/2024 Patient is now back to room air. Was hypoxic at time of admission requiring 2 L nasal cannula however is now on room air. Possibly undiagnosed sleep apnea. Will need sleep study as an outpatient at discharge. General surgery consulted. Appreciate recommendations. Plan for Gastrografin contrast study today. Repeat KUB at 8 PM. Patient continues to have hematochezia and loose stools. Will need a colonoscopy going forward. Hemoglobin on admission 15.2. Will repeat labs. Recheck CBC CMP. Continue D5 normal saline at 75 cc/h. Patient appears dehydrated. 11/26/2024 Remove NG tube Start clear liquid diet. Discussed with general surgery. Patient passed Gastrografin challenge. plan to advance diet as tolerated. if pt continues to do well, may dc in next 24-48 hours appreciate gen surg recs will need outpatient colonoscopy PDMP PDMP Reviewed: Not Reviewed Attestations 2 Medical Necessity Statement*: More than 2 midnights anticipated Small bowel obstruction hematochezia. Diagnoses Small bowel obstruction K56.609 Tubular adenoma D36.9
--- NOTE | 2024-11-26 13:27 | PC.SOCIAL ---
IMM Update pg 2 of IMM updated and reviewed w/ patient. Copy provided and copy dated, initialed and placed in chart.
[2024-11-26] MEDS: enoxaparin 40 mg/0.4 mL Syringe SUBCUT (21:07)
[2024-11-26 21:14] LABS: Basophils % 0.2 %; Hematocrit 34.6 % (37-53); Lymphocytes # 1.2 10^3/uL (0.8-4.8); Lymphocytes % 19.6 %; Mean Corpuscular HGB Conc 32.7 g/dL (30-55); Mean Corpuscular Hemoglobin 28.5 pg (27-33); Mean Corpuscular Volume 87.4 fl (82-101); Mean Platelet Volume 11.2 fL (7.4-10.4); Monocytes # 0.8 10^3/uL (0.2-0.9); Neutrophils # 4.25 10^3/uL (1.8-7.7); Neutrophils % 67.9 %; Nucleated Red Blood Cells % 0 %; Platelet Count 121 10^3/cmm (157-399); Red Blood Count 3.96 10^6/uL (3.85-5.65); Red Cell Distribution Width 14.8 % (12.1-15.1); White Blood Count 6.26 10^3/uL (3.29-11.43)
[2024-11-27 04:36] VITALS: BP 132/88; PULSE 69; RESP 18; TEMP 36.8; O2SAT 95
[2024-11-27 04:42] LABS: Basophils % 0.3 %; Eosinophils % 0.3 %; Hematocrit 33.1 % (37-53); Lymphocytes # 1.2 10^3/uL (0.8-4.8); Lymphocytes % 18.8 %; Mean Corpuscular HGB Conc 32.6 g/dL (30-55); Mean Corpuscular Hemoglobin 28.1 pg (27-33); Mean Corpuscular Volume 86.2 fl (82-101); Mean Platelet Volume 10.5 fL (7.4-10.4); Monocytes # 0.8 10^3/uL (0.2-0.9); Monocytes % 12.7 %; Neutrophils # 4.23 10^3/uL (1.8-7.7); Neutrophils % 67.7 %; Nucleated Red Blood Cells % 0 %; Platelet Count 117 10^3/cmm (157-399); Red Blood Count 3.84 10^6/uL (3.85-5.65); Red Cell Distribution Width 14.6 % (12.1-15.1); White Blood Count 6.24 10^3/uL (3.29-11.43)
[2024-11-27 05:07] LABS: Anion Gap 10.6 (5-19); Blood Urea Nitrogen 14 mg/dL (8-23); Calcium 7.3 mg/dL (8.5-10.5); Carbon Dioxide 23 mmol/L (22-29); Chloride 110 mmol/L (98-107); Creatinine Clr Calc Pharmacy 99.1341; Glucose 114 mg/dL (65-115); Osmolality Calculated 291 mOsm/kg (285-295); Potassium 3.6 mmol/L (3.5-5.1); Sodium 140 mmol/L (136-145)
[2024-11-27 08:00] VITALS: BP 116/60; PULSE 63; RESP 16; TEMP 36.9; O2SAT 94
[2024-11-27 08:21] LABS: Basophils % 0.3 %; Eosinophils # 0.2 10^3/uL (0.0-0.8); Eosinophils % 2.6 %; Hematocrit 34.5 % (37-53); Lymphocytes # 1.3 10^3/uL (0.8-4.8); Lymphocytes % 22.2 %; Mean Corpuscular HGB Conc 32.5 g/dL (30-55); Mean Corpuscular Hemoglobin 28.4 pg (27-33); Mean Corpuscular Volume 87.6 fl (82-101); Mean Platelet Volume 10.9 fL (7.4-10.4); Monocytes # 0.7 10^3/uL (0.2-0.9); Monocytes % 11.3 %; Neutrophils # 3.67 10^3/uL (1.8-7.7); Neutrophils % 63.1 %; Nucleated Red Blood Cells % 0 %; Platelet Count 124 10^3/cmm (157-399); Red Blood Count 3.94 10^6/uL (3.85-5.65); Red Cell Distribution Width 14.6 % (12.1-15.1); White Blood Count 5.82 10^3/uL (3.29-11.43)
[2024-11-27] MEDS: pantoprazole 40 mg SDV IVP (08:49)
--- NOTE | 2024-11-27 09:22 | P.PN_ITS ---
Subjective 2 Subjective: Tolerating diet Passing gas Having bowel movements Bowel movements not bloody anymore Vitals/I&O/Wt Last Vital Signs Temp 98.4 F 11/27/24 08:00 Pulse 63 11/27/24 08:00 Resp 16 11/27/24 08:00 BP 116/60 11/27/24 08:00 Pulse Ox 94 11/27/24 08:00 O2 Del Method Room Air 11/27/24 08:44 O2 Flow Rate 5 11/25/24 02:00 11/26/24 11/27/24 11/27/24 22:59 06:59 14:59 Intake Total 1720 / 2200 480 / 2680 360 / 360 Balance 1720 / 2200 480 / 2680 360 / 360 Weight last 48 hrs Weight 206 lb 3.2 oz Weight 205 lb Physical Exam 2 Narrative: Chest: Unlabored breathing room air. No lymphadenopathy. Heart: Regular rate and rhythm. Abdomen: Soft, nontender, nondistended. No masses or lymphadenopathy. Data 11/27/24 08:08 11/27/24 04:29 A&P Assessment and plan (1) Small bowel obstruction: Plan 74-year-old male who presented with an SBO. Also had hematochezia during his hospital stay. Currently both resolved. Cleared for discharge. Follow-up with me as outpatient for elective diagnostic colonoscopy. PDMP PDMP Reviewed: Not Reviewed Attestations 2 Medical Necessity Statement*: N/A Coding Level of Care Code 19968 Diagnoses Small bowel obstruction K56.609 Time Spent (min) 30
--- NOTE | 2024-11-27 10:04 | P.DS_ITS ---
Discharge Providers Date of Admission: 11/24/24 21:43 Date of Discharge: November 27, 2024 Attending Provider at Admission: Jose Miguel Love MD Attending Provider at Discharge: Elle Whalen MD Primary Care Provider: Nataliya Saenz MD Diagnoses at Discharge Discharge Diagnosis (1) Small bowel obstruction: Status: Acute Reason for Visit Reason for Visit: ABD Pain\Diah\Sameer Hospital Course Hospital Course Patient was initially admitted for small bowel obstruction. General surgery on board since admission. Gastrografin challenge test was done with the patient and contrast did reach the colon. He was managed conservatively with an NG tube. He was passing gas and having bowel movements. He also experienced hematochezia at first however that resolved during hospital stay. Hemoglobin has been stable. He was placed on clear liquids and slowly advance to full liquids. He was seen by general surgery and cleared for discharge to follow-up as an outpatient to have colonoscopy done going forward. I had a discussion with patient to remain on a softer diet when he goes home patient to return to hospital if he develops any other symptoms. Patient looking forward to going home today. He is doing well. No longer experiencing nausea vomiting or abdominal pain. Patient cleared to discharge from general surgery standpoint. Physical Exam Narrative: General: Alert oriented x3, patient seen sitting up in bed with friend at bedside. HEENT: Normocephalic, atraumatic, EOMI, on room air no conversational dyspnea no acute distress. Cardio: Regular rate rhythm, normal S1-S2, Respiratory: Clear to auscultation bilaterally no wheezes or rhonchi. GI: Abdomen mainly soft and generally nontender, Behavior: Appropriate and cooperative Extremities: No edema bilateral lower extremities. Discharge Data Studies Completed and Pending Completed Studies During Hospitalization Category Date Time Status CT abdomen pelvis w con* [id number] Stat Cat Scan 11/24/24 20:48 Completed XR KUB portable [id number] Routine Exams 11/25/24 08:00 Completed XR KUB portable [id number] Routine Exams 11/25/24 20:00 Completed XR chest 1V portable [id number] Routine Exams 11/24/24 22:12 Completed Pending at discharge Category Date Time Status CBC Auto Diff [Complete Blood Count w/Auto] Q12H Lab 11/27/24 20:00 Ordered Radiology Impressions Abdomen/Pelvis CT 11/24/24 20:48 IMPRESSION: Small bowel obstruction. Retained secretions in the distal esophagus. The stomach is distended with air and fluid. Multiple dilated air and fluid-filled loops of small bowel throughout the abdomen with 10 positioned point in the distal ileum. No tethering, mass or stricture identified at the transition point (series 3, image 55). ADDENDUM: 11/24/242137 THIS REPORT CONTAINS FINDINGS THAT MAY BE CRITICAL TO PATIENT CARE. The findings were verbally communicated via telephone conference with SHAAN Best at 9:38 PM [employer] on 11/24/2024. The findings were acknowledged and understood. Chest X-Ray 11/24/24 22:12 IMPRESSION: The NG tube tracks into the stomach. KUB X-Ray 11/25/24 20:00 IMPRESSION: 1. Gastrografin is seen within the ascending, transverse and descending colon and rectum at 8 hours 2. Multiple air-filled dilated loops of small bowel. Laboratory Results WBC 5.82 10^3/uL (3.29-11.43) 11/27/24 08:08 RBC 3.94 10^6/uL (3.85-5.65) 11/27/24 08:08 Hgb 11.20 g/dL (11.27-16.99) L 11/27/24 08:08 Hct 34.5 % (37-53) L 11/27/24 08:08 MCV 87.6 fl (82-101) 11/27/24 08:08 MCH 28.4 pg (27-33) 11/27/24 08:08 MCHC 32.5 g/dL (30-55) 11/27/24 08:08 RDW 14.6 % (12.1-15.1) 11/27/24 08:08 Plt Count 124 10^3/cmm (157-399) L 11/27/24 08:08 MPV 10.9 fL (7.4-10.4) H 11/27/24 08:08 Neut % (Auto) 63.1 % 11/27/24 08:08 Lymph % (Auto) 22.2 % 11/27/24 08:08 Otero % (Auto) 11.3 % 11/27/24 08:08 Eos % (Auto) 2.6 % 11/27/24 08:08 Baso % (Auto) 0.3 % 11/27/24 08:08 Neut # (Auto) 3.67 10^3/uL (1.8-7.7) 11/27/24 08:08 Lymph # (Auto) 1.3 10^3/uL (0.8-4.8) 11/27/24 08:08 Otero # (Auto) 0.7 10^3/uL (0.2-0.9) 11/27/24 08:08 Eos # (Auto) 0.2 10^3/uL (0.0-0.8) 11/27/24 08:08 Baso # (Auto) 0.0 10^3/uL (0.0-0.1) 11/27/24 08:08 Nucleated RBC % (auto) 0 % 11/27/24 08:08 Nucleated RBCs # 0.0 /100WBC 11/27/24 08:08 Sodium 140 mmol/L (136-145) 11/27/24 04:29 Potassium 3.6 mmol/L (3.5-5.1) 11/27/24 04:29 Chloride 110 mmol/L (98-107) H 11/27/24 04:29 Carbon Dioxide 23 mmol/L (22-29) 11/27/24 04:29 Anion Gap 10.6 (5-19) 11/27/24 04:29 BUN 14 mg/dL (8-23) 11/27/24 04:29 Creatinine 0.7 mg/dL (0.7-1.2) 11/27/24 04:29 GFR Calculation Not Reportable 11/27/24 04:29 Glucose 114 mg/dL (65-115) 11/27/24 04:29 Calculated Osmolality 291 mOsm/kg (285-295) 11/27/24 04:29 Calcium 7.3 mg/dL (8.5-10.5) L 11/27/24 04:29 Magnesium 2.0 mg/dL (1.7-2.3) 11/27/24 04:29 Total Bilirubin 0.3 mg/dL (0.15-1.2) 11/26/24 07:37 AST 58 U/L (0-40) H 11/26/24 07:37 ALT 25 U/L (0-41) 11/26/24 07:37 Alkaline Phosphatase 84 U/L (40-130) 11/26/24 07:37 Total Protein 5.6 g/dL (6.6-8.7) L 11/26/24 07:37 Albumin 2.7 g/dL (3.5-5.2) L 11/26/24 07:37 Globulin 2.9 g/dL (1.3-4.6) 11/26/24 07:37 Lipase 33 U/L (13-60) 11/24/24 19:44 Urine Color Yellow (Yellow) 11/25/24 07:54 Urine Appearance Clear (CLEAR) 11/25/24 07:54 Urine pH 6.0 (5-7) 11/25/24 07:54 Ur Specific [place] >= 1.099 (1.005-1.030) H 11/25/24 07:54 Urine Protein 2+ (Negative) A 11/25/24 07:54 Urine Glucose (UA) Trace (Normal) H 11/25/24 07:54 Urine Ketones Trace (Negative) 11/25/24 07:54 Urine Blood Negative (Negative) 11/25/24 07:54 Urine Nitrate Negative (Negative) 11/25/24 07:54 Urine Bilirubin Negative (Negative) 11/25/24 07:54 Urine Urobilinogen 1.0 mg/dL (Negative) 11/25/24 07:54 Ur Leukocyte Esterase Negative (Negative) 11/25/24 07:54 Urine RBC Rare /hpf (0-2) 11/25/24 07:54 Urine WBC Rare /hpf (0-5) 11/25/24 07:54 Ur Squamous Epith Cells None /hpf (0-5) 11/25/24 07:54 Amorphous Sediment Not Reportable 11/25/24 07:54 Urine Bacteria Trace /hpf (NONE) 11/25/24 07:54 Hyaline Casts None /lpf 11/25/24 07:54 Vitals Last Vital Signs Temp 98.4 F 11/27/24 08:00 Pulse 63 11/27/24 08:00 Resp 16 11/27/24 08:00 BP 116/60 11/27/24 08:00 Pulse Ox 94 11/27/24 08:00 O2 Del Method Room Air 11/27/24 08:44 O2 Flow Rate 5 11/25/24 02:00 Discharge Plan Discharge Patient Disposition: Home Condition: Stable Prescriptions: Continued niacin 500 mg tablet 500 mg PO BID ascorbic acid (vitamin C) 500 mg capsule 500 mg PO .1 daily multivitamin Tablet 1 tab PO ONCE Fish Oil 100-160-1,000 mg capsule 1 cap PO DAILY potassium chloride 20 mEq packet 20 meq PO DAILY cetirizine [Allergy Relief (cetirizine)] 10 mg tablet 10 mg PO DAILY PRN (Reason: Allergy Symptoms) Held Green Tea Capsule 1 cap PO .1 day Hold Instructions: see pcp saw palmetto 160 mg capsule 160 mg PO ONCE Hold Instructions: see pcp Rx Instructions: give with meal/snack Discharge Orders: Discharge Order (Routine); Ordered 11/27/24 Ordered By: Elle Whalen Referrals: Sanford Tomas DO [Physician] - 12/08/24 8:00 am Nataliya Saenz MD [Primary Care Provider] - 12/11/24 3:45 pm () Discharge Diet: GI Soft Discharge Activity: Resume usual activity Patient Instructions: Bowel Obstruction (GEN), Opioid Safety, Pain Management Activity Restrictions/Additional Instructions: Please return to ER if you experience worsening abdominal pain, shortness of breath, vomiting, diarrhea, blood in stools, fever. Discharge Attestations Time Spent in Discharge Care*: greater than 30 min Quality Metrics Clinical Quality Measures [ No reported AMI, CVA or VTE this stay] Coding Level of Care Code 02538 Total time (in minutes) for Discharge: 35 Diagnoses Small bowel obstruction K56.609
[2024-11-27 11:49] VITALS: BP 163/93; PULSE 73; RESP 17; TEMP 36.7; O2SAT 96
== END 2024-11-27 12:20 | disposition home or self-care (01) | DRG 389 ==
LOC: ER 21:54 → ER IP 22:05 → MEDSURG 11-25 05:48
PROVIDERS: Admitting Provider Internal Medicine; Emergency Provider Emergency Medicine; PCP Family Medicine; Visit Provider Internal Medicine
DX: K56.600 Partial intestinal obstruction, unspecified as to cause (principal); K92.1 Melena; R09.02 Hypoxemia; Z86.0101 Personal history of adenomatous and serrated colon polyps; Z80.0 Family history of malignant neoplasm of digestive organs
CPT/HCPCS: 36415; 71045; 74018; 74177; 80048; 80053; 81001; 83690; 83735; 85025; 93005; 96372; 96374; 96375; 96376; 99291; J1171; J1650; J2060; J2405; J2470; J7042; Q9963

== ENCOUNTER → 2024-12-08 08:05 | Outpatient (BNVA) | payer OTHER, SELFPAY | PROVIDERS: PCP Family Medicine; Referring Provider Surgery; Visit Provider Student in an Organized Health Care Education/Training Program | DX: Z09 Encounter for follow-up examination after completed treatment for conditions other than malignant neoplasm (principal); K92.1 Melena; D50.9 Iron deficiency anemia, unspecified | CPT/HCPCS: 99204; 99214 ==

== ENCOUNTER 2024-12-23 07:00 | Day surgery (SDC) | payer OTHER, SELFPAY ==
[2024-12-23 07:19] VITALS: BP 112/88; PULSE 93; RESP 16; TEMP 36.4; O2SAT 95; BMI 27.1
[2024-12-23] MEDS: sodium chloride 0.9% 500 ML 15 ML IV (07:27)
--- NOTE | 2024-12-23 07:48 | ANES.PREANE2 ---
Pre-Anesthetic Assessment Height/Weight: Height 1.83 m Weight 90.718 kg Temp Pulse Resp BP Pulse Ox O2 Del Method 97.6 F 93 16 112/88 95 Room Air 12/23/24 07:19 12/23/24 07:19 12/23/24 07:19 12/23/24 07:19 12/23/24 07:19 12/23/24 07:19 Preop Diagnosis: Hematochezia, Anemia Operation Date: 12/23/24 08:30 Proposed Procedures p EGD [id number] G0105 K92.1 D50.9(Not Applicable) - Farhat Bowers MD s Colonoscopy(Not Applicable) - Farhat Bowers MD Familial anesthetic complications: none Was Beta Conner taken within 24 hours: N/A Last intake: Intake Last Liquid Date 12/22/24 Last Liquid Time 20:15 Last Solid Date 12/21/24 Last Solid Time 17:00 Social No alcohol and No tobacco Exam alert, oriented x 3, clear to auscultation bilaterally and regular rate & rhythm Airway Submandibular: within normal limits Cervical ROM: within normal limits Mallampati: Class II Dentition: full Pulmonary None reported CV/HEM None reported None reported Hepatic None reported GI Gastroesophageal Reflux Disease Metabolic Hyperlipidemia [facility] [place] None reported Neuropsych None reported Anesthetic Plan ASA status: 2 Anesthesia: MAC Other: thoracotomy to remove a benign cyst. Medications/Allergies Home Medications ?Medication ?Instructions ?Recorded ?Confirmed ?Last Taken ?Type ascorbic acid (vitamin C) 500 mg 500 mg PO DAILY 03/14/22 12/17/24 12/21/24 History capsule cetirizine 10 mg tablet (Allergy 10 mg PO DAILY PRN Allergy Symptoms 03/14/22 12/17/24 12/21/24 History Relief (cetirizine)) green tea leaf extract (Green Tea 1 cap PO DAILY 03/14/22 12/17/24 12/21/24 History capsule) Held on 11/27/24. Instructions: see pcp multivitamin 1 tab PO DAILY 03/14/22 12/17/24 12/21/24 History niacin 500 mg tablet 500 mg PO BID 03/14/22 12/17/24 12/21/24 History omega 0-pqc-mfr-fish oil 100 1 cap PO DAILY 03/14/22 12/17/24 12/21/24 History mg-160 mg-1,000 mg capsule (Fish Oil) potassium chloride 20 mEq oral 20 meq PO DAILY 03/14/22 12/17/24 12/21/24 History packet saw palmetto 160 mg capsule 160 mg PO DAILY 03/14/22 12/17/24 12/21/24 History Held on 11/27/24. Instructions: see pcp aspirin 81 mg tablet 81 mg PO DAILY 12/17/24 12/17/24 12/21/24 History Allergies Allergy/AdvReac Type Severity Reaction Status Date / Time aspartame Allergy Intermediate ADR-Blurry Verified 12/17/24 10:48 Vision Cetethi-XFW-MiA Reductase Allergy ALGY-Hives Verified 12/17/24 10:48 Inhibitor Current Medications Generic Name Dose Route Start Last Admin Trade Name Freq PRN Reason Stop Dose Admin Sodium Chloride 500 mls @ 15 mls/hr 12/23/24 07:13 12/23/24 07:27 Sodium Chloride 0.9% IV 12/24/24 07:12 15 mls/hr .Q24H PRN Administration COLONOSCOPY FLUIDS PFSH Anesthesia Medical History Tubular adenoma Hx of colonic polyp Surgical History Hx of exploratory thoracotomy Hx of colonoscopy x2 hx of transverse polyp and rectal polyp Family History Mother Thyroid disease Father Hypertension Alzheimer disease Social History Smoking and tobacco/nicotine status: never used tobacco/nicotine Data Anesthesia Cardiac Studies: No Data to Display
--- NOTE | 2024-12-23 08:44 | W.PM.OPSUD ---
Surgery/Procedure H&P Update DATE OF PROCEDURE: December 23, 2024 DATE H&P PERFORMED: 12/08/24 H&P UPDATE INFORMATION: I have reviewed H&P completed within last 30 days, I have examined patient prior to procedure and No changes to prior documentation PREOP DIAGNOSIS: Hematochezia, Anemia PLANNED PROCEDURE: Operation Date: 12/23/24 08:30 Proposed Procedures p EGD [id number] G0105 K92.1 D50.9(Not Applicable) - Farhat Bowers MD s Colonoscopy(Not Applicable) - Farhat Bowers MD
--- NOTE | 2024-12-23 08:49 | PC.NURSE ---
PTS BELONGINGS STORED IN LOCKED LOCKER. HAT, SHOES, CLOTHES & CELL PHONE.
[2024-12-23 09:15] VITALS: BP 94/65; PULSE 71; RESP 17; TEMP 36.4; O2SAT 96
[2024-12-23 09:35] VITALS: BP 119/74; PULSE 74; RESP 18; TEMP 36.4; O2SAT 97
--- NOTE | 2024-12-23 09:46 | ANE.PACU2 ---
Inpatient post-anesthesia follow up: Airway intact: Yes Vital signs: Temperature 97.5 F Pulse Rate 74 Respiratory Rate 18 Blood Pressure 119/74 Pulse Oximetry 97 Oxygen Delivery Me thod Room Air Oxygen Flow Rate Fraction of Inspir ed Oxygen Hydration adequate: Yes Nausea and vomiting: No Pain level: 1 Mental status: Baseline
== END 2024-12-23 09:46 | disposition home or self-care (01) ==
PROVIDERS: PCP Family Medicine; Visit Provider Student in an Organized Health Care Education/Training Program
PROC: 0DJ08ZZ Inspection of Upper Intestinal Tract, Via Natural or Artificial Opening Endoscopic (ICD-10-PCS; principal; 2024-12-23 08:30)
PROC: 0DJD8ZZ Inspection of Lower Intestinal Tract, Via Natural or Artificial Opening Endoscopic (ICD-10-PCS; CPT 45378; 2024-12-23 08:30)
DX: K21.00 Gastro-esophageal reflux disease with esophagitis, without bleeding (principal); K29.50 Unspecified chronic gastritis without bleeding; K92.1 Melena; D50.9 Iron deficiency anemia, unspecified; E78.5 Hyperlipidemia, unspecified; Z79.899 Other long term (current) drug therapy; Z79.82 Long term (current) use of aspirin; Z88.8 Allergy status to other drugs, medicaments and biological substances; Z86.0101 Personal history of adenomatous and serrated colon polyps
CPT/HCPCS: 43239; 45378; 88305; J2704; J7040

== ENCOUNTER → 2025-01-05 10:35 | Outpatient (BNVA) | payer OTHER, SELFPAY | PROVIDERS: PCP Family Medicine; Visit Provider Student in an Organized Health Care Education/Training Program | DX: Z09 Encounter for follow-up examination after completed treatment for conditions other than malignant neoplasm (principal) | CPT/HCPCS: 99213 ==